=== PATIENT | female | born 1995 | race Hispanic/Latino ===

== ENCOUNTER 2018-05-02 08:57 | Emergency (ER) | payer OTHER, SELFPAY ==
[2018-05-02 09:00] VITALS: BP 119/70; PULSE 74; RESP 14; TEMP 37.1; O2SAT 96
--- NOTE | 2018-05-02 09:28 | ED.HA ---
HPI - Headache General Chief Complaint: Headache Stated Complaint: ear infection causing pain Time Seen by Provider: 05/02/18 09:00 Source: patient Mode of arrival: ambulatory Limitations: no limitations History of Present Illness HPI Narrative: Patient is a 23-year-old female here for evaluation of left ear fullness and left-sided headache. She states that she has had the left ear fullness off and on for several weeks. She states that this episode started this morning along with a headache. Does have left frontal sinus tenderness. Some nausea. No rashes. Has not tried anything for symptoms prior to arrival Related Data Previous Rx's Medication Instructions Recorded fluticasone [Flonase Allergy 2 spray NASAL DAILY #15.8 gram 05/02/18 Relief] loratadine [Claritin] 10 mg PO DAILY #30 tab 05/02/18 ondansetron 4 mg PO Q6-8H PRN #10 tab 05/02/18 Allergies Allergy/AdvReac Type Severity Reaction Status Date / Time No Known Drug Allergies Allergy Verified 05/02/18 09:19 Review of Systems Constitutional Denies fever(s) and Reports headache(s) ENT Ears, Nose, Mouth, and Throat: Denies vertigo, Denies dizziness, Reports headache(s), Denies lip swelling, Denies nasal congestion, Denies disequilibrium, Denies tinnitus, Denies sore throat and Denies throat swelling Comments: Left ear pain Cardiovascular Denies chest pain and Denies dyspnea Respiratory Denies dyspnea Gastrointestinal Gastrointestinal: Reports nausea and Denies vomiting Integumentary/Breasts Denies rash Neurologic Denies behavioral changes, Denies vertigo, Denies dizziness, Reports headache(s) and Denies disequilibrium Psychiatric Denies behavioral changes Hematologic/Lymphatic Denies easy bleeding and Denies easy bruising Allergic/Immunologic Denies lip swelling and Denies throat swelling [facility] Medical History Healthy adult (Acute) Social History Smoking Status: Current some day smoker Social History Smoking Status: Current some day smoker Exam Initial Vital Signs Initial Vital Signs: Vital Signs Temperature 98.7 F 05/02/18 09:00 Pulse Rate 74 05/02/18 09:00 Respiratory Rate 14 05/02/18 09:00 Blood Pressure 119/70 05/02/18 09:00 Pulse Oximetry 96 05/02/18 09:00 Const General: cooperative, healthy appearing, comfortable, well developed, well groomed and No acute distress Orientation: alert, awake and oriented x3 HENMT Head: normal to inspection and normocephalic Ears: TM normal on the right, TM normal on the left and EAC abnormal (Left-sided external auditory canal red however not inflamed) Neck Lymphatic: lymphadenopathy Resp Effort & Inspection: normal respiratory effort Auscultation: clear to auscultation bilaterally Cardio Rate: regular rate Rhythm: regular rhythm Skin Lesions: no lesions Rashes: no rashes Neuro General: alert and awake Extrem General: normal to inspection and capillary refill normal Course Vital Signs - 8 hr 05/02/18 09:00 Temperature 98.7 F Pulse Rate 74 Respiratory Rate 14 Blood Pressure 119/70 Pulse Oximetry 96 MDM - Headache MDM Narrative Medical decision making narrative: Patient does have tenderness to the left frontal sinus. Her left external auditory canal is red however she has been using ear drops. I do not think that this is otitis externa. Her left tympanic membrane is unremarkable. No signs of otitis media. Will send home with a prescription for decongestants and nasal sprays. She was instructed [place] Discharge Plan Departure Patient Disposition: Home Clinical Impression: Nasal sinus congestion Headache Qualifiers: Headache type: unspecified Headache chronicity pattern: unspecified pattern Intractability: not intractable Qualified Code(s): R51 - Headache Instructions: Antihistamine/Decongestant (By mouth) Activity Restrictions/Additional Instructions: You do need to follow-up with your medical department for any work-related restrictions. [place] taking them as directed. Contact your medical department for follow-up. Prescriptions: New ondansetron 4 mg tablet,disintegrating 4 mg PO Q6-8H PRN (Reason: nausea and vomiting) Qty: 10 RF: 0 fluticasone [Flonase Allergy Relief] 50 mcg/actuation spray,suspension 2 spray NASAL DAILY Qty: 15.8 RF: 0 loratadine [Claritin] 10 mg tablet 10 mg PO DAILY Qty: 30 RF: 0 Stand Alone Forms: Work Release Note
== END 2018-05-02 09:44 | disposition home or self-care (01) ==
PROVIDERS: Emergency Provider Emergency Medicine
DX: R09.81 Nasal congestion (principal)
CPT/HCPCS: 99282